=== PATIENT | female | born 1960 | race Asian ===

== ENCOUNTER 2024-12-20 00:56 | Emergency (ER) | payer MEDICAID ==
[~2024-12-20] VITALS: Ht 162.6 cm; Wt 104.3 kg
[2024-12-20] MEDS ORDERED: MORPHINE SULFATE INJ 4 MG/ML DISP.SYRIN ONE (01:25)
[2024-12-20] MEDS ORDERED: ONDANSETRON HCL/PF 4 MG/2 ML VIAL ONE (01:25)
[2024-12-20] MEDS: MORPHINE SULFATE INJ 2 MG/ML DISP.SYRIN IV ONE (01:29)
[2024-12-20] MEDS: IV NS 0.9% 1,000 ML BAG IV ONE (01:29)
[2024-12-20] MEDS: ONDANSETRON HCL/PF 4 MG/2 ML VIAL IVP ONE (01:29)
[2024-12-20 01:36] LABS: PLATELET COUNT (AUTO) 192 K/uL (150-450); RED BLOOD CELL COUNT(AUTO) 5.21 MIL/uL (4.0-5.2); RED CELL DISTRIBUTION WIDTH 12.4 % (11.5-15.0); WHITE BLOOD COUNT (AUTO) 6.6 K/uL (4.3-11.0)
[2024-12-20 01:43] LABS: CALCIUM, SERUM 9.1 mg/dL (8.5-10.1); CREATININE 0.8 mg/dL (0.6-1.3); SODIUM SERUM 140.0 mmol/L (136-145); UREA NITROGEN, BLOOD 14.0 mg/dL (7-18)
[2024-12-20 01:48] LABS: ASPARTATE AMINOTRANSFERASE 34.0 U/L (15-37); TOTAL PROTEIN, SERUM 8.0 g/dL (6.4-8.2)
[2024-12-20 04:00] LABS: APPEARANCE,URINE CLEAR (CLEAR); BLOOD, URINE 3+ Ery/uL (NEGATIVE); LEUKOCYTE ESTERASE ,URINE 1+ (NEGATIVE); NITRITE, URINE NEGATIVE (NEGATIVE); UGLUCOSE NEGATIVE (NEGATIVE)
[2024-12-20 04:16] LABS: ADD URINE CULTURE YES
[2024-12-20] MEDS ORDERED: TAMS-12 PO (04:29)
[2024-12-20] MEDS ORDERED: KETO10TA2 PO (04:29)
[2024-12-20] MEDS ORDERED: ONDA4TAB5 PO (04:29)
[2024-12-20 07:40] VITALS: BP 136/77; TEMP 98.9; O2SAT 97
== END 2024-12-20 07:40 | disposition home or self-care (01) ==
LOC: ER 01:08
DX: N20.0 Calculus of kidney (principal); E66.9 Obesity, unspecified; Z68.39 Body mass index [BMI] 39.0-39.9, adult
CPT/HCPCS: 99285; 74176; 96374; 96361; 96375; 85025; 80048; 87086; 83690; 80076; 81001; 36415; J2270; J2405; J7030